=== PATIENT | female | born 1975 | race Caucasian/White ===

== ENCOUNTER 2019-12-19 10:36 | Emergency (ER) | payer MEDICAID ==
--- NOTE | 2019-12-19 11:22 | EDM.PDOC ---
ED HPI GENERAL MEDICAL PROBLEM - General Chief Complaint: ENT Problem Stated Complaint: SINUS INFECTION Time Seen by Provider: 12/19/19 11:05 Source of Information: Reports: Patient, RN, RN Notes Reviewed History Limitations: Reports: No Limitations - History of Present Illness INITIAL COMMENTS - FREE TEXT/NARRATIVE: Comes in with sinus pain, plugged and pressure on her ears, dental pain, and headache for approximately 2 weeks. Patient has allergies to amoxicillin and sulfa. She was treated 1 week ago with cefdinir. She feels worse than when symptoms first started. Patient is having trouble sleeping. She feels better laying down than being upright. She has tried intranasal histamines without any relief. Onset: Sudden Onset Date: 12/05/19 Onset Time: 08:00 Duration: Day(s):, Getting Worse Location: Reports: Head, Face Quality: Reports: Pressure, Throbbing Improves with: Reports: None Worsens with: Reports: Other (Being upright or moving around.) Context: Reports: Sick Contact Associated Symptoms: Reports: Headaches. 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, Other (see below) (Cefdinir, antihistamines) - Related Data Allergies Allergy/AdvReac Type Severity Reaction Status Date / Time amoxicillin [From Trimox] Allergy Rash Verified 12/19/19 10:51 Sulfa (Sulfonamide Allergy Rash Verified 12/19/19 10:51 Antibiotics) Home Meds: Home Meds Cefdinir 1 tab PO BID 12/19/19 [History] Escitalopram [Lexapro] 1 tab PO DAILY 12/19/19 [History] Past Medical History - Past Surgical History GI Surgical History: Reports: Cholecystectomy Social & Family History - Tobacco Use Smoking Status *Q: Never Smoker ED ROS ENT - Review of Systems Review Of Systems: Comprehensive ROS is negative, except as noted in HPI. HEENT: Reports: Dental Pain, Ear Pain, Sinus Problem. Denies: Ear Discharge, Throat Pain Respiratory: Denies: Shortness of Breath, Cough Cardiovascular: Denies: Chest Pain ED EXAM, ENT - Physical Exam Exam: See Below Exam Limited By: No Limitations General Appearance: Alert, Mild Distress Eye Exam: Bilateral Eye: PERRL Ears: Hearing Loss, Mastoid Tenderness, TM Bulging, TM Fluid Nose: Nasal Swelling, Nasal Tenderness Mouth/Throat: Normal Inspection, Normal Gums, Normal Lips, Normal Oropharynx Head: Atraumatic, Normocephalic, Facial Tenderness, Sinus Tenderness Neck: Normal Inspection, Supple, Lymphadenopathy (L) Respiratory/Chest: No Respiratory Distress, Lungs Clear, Normal Breath Sounds, No Accessory Muscle Use, Chest Non-Tender Cardiovascular: Normal Peripheral Pulses, Regular Rate, Rhythm, No Edema GI/Abdominal: Normal Bowel Sounds, Soft, Non-Tender, No Organomegaly Neurological: Alert, Oriented, CN II-XII Intact, Normal Cognition, Normal Gait Psychiatric: Normal Affect, Normal Mood Skin: Warm, Dry, Intact, Normal Color, No Rash Course - Vital Signs Last Recorded V/S: Last Vital Signs Temp 36.3 C 12/19/19 10:58 Pulse 73 12/19/19 10:58 Resp 14 12/19/19 10:58 BP 122/80 12/19/19 10:58 Pulse Ox 98 12/19/19 10:58 Departure - Departure Time of Disposition: 11:43 Disposition: Home, Self-Care 01 Condition: Fair Clinical Impression: Acute bacterial sinusitis Otitis media Qualifiers: Otitis media type: suppurative Chronicity: acute Laterality: left Recurrence: non-recurrent Spontaneous tympanic membrane rupture: without spontaneous rupture Qualified Code(s): H66.002 - Acute suppurative otitis media without spontaneous rupture of ear drum, left ear - Discharge Information *PRESCRIPTION DRUG MONITORING PROGRAM REVIEWED*: Not Applicable *COPY OF PRESCRIPTION DRUG MONITORING REPORT IN PATIENT GUSTAVO: Not Applicable Instructions: Otitis Media, Adult, [id number], Sinusitis, Adult, [id number] Referrals: PCP,None [Primary Care Provider] - Forms: ED Department Discharge Additional Instructions: Patient provided azithromycin and prednisone via instruments. If no considerable improvement in the next 3 to 4 days follow-up with primary care provider upon return to home for further evaluation and possible referral to ENT. Care Plan Goals: Take all medications as prescribed. Sepsis Event Note (ED) - Evaluation Sepsis Screening Result: No Definite Risk - Focused Exam Vital Signs: Vital Signs Temp Pulse Resp BP Pulse Ox 12/19/19 10:58 36.3 C 73 14 122/80 98 - Assessment/Plan Assessment:: Acute sinusitis with left ear involvement Plan: Stop cefdinir. Begin azithromycin and prednisone. If not considerably better in the next 3 to 4 days follow-up with primary care provider to be referred to ENT.
== END 2019-12-19 11:47 | disposition home or self-care (01) ==
LOC: JP.ED 10:36
DX: H66.002 Acute suppurative otitis media without spontaneous rupture of ear drum, left ear (principal); J01.90 Acute sinusitis, unspecified; B96.89 Other specified bacterial agents as the cause of diseases classified elsewhere; Z88.2 Allergy status to sulfonamides; Z88.1 Allergy status to other antibiotic agents; Z90.49 Acquired absence of other specified parts of digestive tract; Z79.899 Other long term (current) drug therapy
CPT/HCPCS: 99283

== ENCOUNTER 2021-06-17 12:42 | Emergency (ER) | payer MEDICAID | END 2021-06-17 13:51 | disposition home or self-care (01) | LOC: JP.ED 12:42 | DX: J00 Acute nasopharyngitis [common cold] (principal); H69.83 Other specified disorders of Eustachian tube, bilateral; Z88.0 Allergy status to penicillin; Z88.2 Allergy status to sulfonamides | CPT/HCPCS: 99283 ==